=== PATIENT | female | born 1970 | race Caucasian/White ===

== ENCOUNTER → 2016-06-14 | Outpatient (CLI) | payer OTHER | LOC: HEART 5 10:54 | DX: J44.9 Chronic obstructive pulmonary disease, unspecified (principal); J45.909 Unspecified asthma, uncomplicated | CPT/HCPCS: 94060; 94729 ==

== ENCOUNTER → 2016-07-10 | Outpatient (CLI) | payer OTHER | LOC: RAD 14:47 | DX: R09.02 Hypoxemia (principal); J44.9 Chronic obstructive pulmonary disease, unspecified; J98.4 Other disorders of lung | CPT/HCPCS: 36600; 71020; 82803 ==